=== PATIENT | male | born 1970 | race African-American/Black ===

== ENCOUNTER 2022-03-07 08:38 | Observation (INO) ==
[2022-03-07] MEDS ORDERED: MoRPHine SULFATE 2 MG/ML CARP IV STA (08:43)
[2022-03-07] MEDS ORDERED: ONDANSETRON INJ 2 MG/ML 2 ML VIAL IV STA (08:43)
[2022-03-07] MEDS ORDERED: SODIUM CHLORIDE 0.9% 1000ML 1,000 ML IV STA (08:43)
[2022-03-07] MEDS ORDERED: NITROGLYCERIN 2% OINTMENT 30GM TUBE EXT STA (08:43)
[2022-03-07] MEDS ORDERED: TICAGRELOR 90 MG TAB PO ONE (08:56)
[2022-03-07] MEDS ORDERED: Heparin IV Adult Wt-Based Low-Dose WITH Bolus Protocol STA (08:56)
--- NOTE | 2022-03-07 08:59 | XRay Report ---
XR chest 1V portable HISTORY: 51 years-old Male Chest Pain . Acute chest pain COMPARISON: None TECHNIQUE: AP view of the chest FINDINGS: Cardiomediastinal and hilar silhouettes are within normal limits. No pneumothorax, pleural effusion, airspace consolidation or overt pulmonary edema. Bones appear grossly intact. IMPRESSION: No acute process. ACT 112: Negative or not required by law. The above report was generated using voice recognition software. It may contain grammatical, syntax o r spelling errors. Electronically signed by: Catalino Watkins M.D. 03/07/2022 8:58 AM
[2022-03-07 09:01] LABS: Basophils % (auto) 0.7 %; Eosinophils # (auto) 0.15 K/uL (0-0.50); Eosinophils % (auto) 1.1 %; Hematocrit (blood only) 44.6 % (40.1-51.0); Hemoglobin 15.1 g/dl (14.0-18.0); Immature Granulocytes # (auto) 0.05 K/uL (0.00-0.02); Immature Granulocytes % (auto) 0.4 %; Lymphocytes # (auto) 4.68 K/uL (1.2-3.4); Lymphocytes % (auto) 34.1 %; Mean Corpuscular Hemoglobin 29.6 pg (25.0-34.0); Mean Corpuscular Hgb Conc 33.9 g/dL (32.0-36.0); Mean Corpuscular Volume 87.5 fL (80.0-100.0); Mean Platelet Volume 10.3 fL (9.4-12.4); Monocytes % (auto) 5.1 %; Neutrophils # (auto) 8.06 K/uL (1.4-6.5); Neutrophils % (auto) 58.6 %; Platelet Count 309 K/uL (130-400); RDW Coefficient of Variation 12.7 % (11.5-14.5); RDW Standard Deviation 40.3 fL (36.4-46.3); White Blood Count 13.74 K/ul (4.8-10.8)
[2022-03-07] MEDS ORDERED: HEPARIN SOD (PORCINE) 1000 UNIT/ML ONE (09:05)
--- NOTE | 2022-03-07 09:14 | Emergency Department Note ---
History of Present Illness General Chief Complaint: Cardiac Assessment Stated Complaint: CARDIAC ASSESSMENT Time Seen by Provider: 03/07/22 08:43 Source: patient and EMS History of Present Illness Provider Complaint: chest pain Onset (ago): hour(s) 1 Duration: constant Onset: during exertion (Pain occurred after getting off of his [employer] bike) Pain Location: substernal Pain Radiation: none Severity: severe Maximum Pain Intensity: 10 Current Pain Intensity: 5 Quality: + heaviness Relieved By: + nothing Exacerbated By: + nothing Context: no recent illness, no recent surgery, no trauma/injury or no new medications Associated symptoms: no nausea, no vomiting, no dyspnea, no palpitations or no fever Treatments prior to arrival: aspirin and nitroglycerin Home Medications Medication Instructions Recorded Confirmed Type aspirin 81 mg tablet,delayed 324 mg PO DAILY Chest Pain 03/07/22 03/07/22 History release Allergies Allergy/AdvReac Type Severity Reaction Status Date / Time No Known Allergies Allergy Unverified 03/07/22 09:22 Past Med/Surg History Medical History (Updated 03/07/22 @ 09:26 by Sammy Short) No pertinent family history No pertinent past medical history Surgical History (Updated 03/07/22 @ 09:09 by Sammy Short) No pertinent past surgical history Social History Smoking Status: Never smoker Feels Safe at Home: Yes Review of Systems A total of 10 systems reviewed and were otherwise negative Physical Exam Vital Signs Vital Signs - 24 hr 03/07/22 08:44 03/07/22 08:43 03/07/22 08:56 Temperature 36.6 C Temperature Source Oral Pulse Rate 74 73 71 Pulse Rhythm Regular Respiratory Rate 16 20 Respiratory Effort / Characteristics Non-Labored Respiratory Depth Normal Respiratory Pattern Regular Blood Pressure 126/82 Blood Pressure Mean 96 Blood Pressure Position Sitting Pulse Oximetry 100 95 95 Oxygen Delivery Method Room Air Room Air Room Air Sepsis Recent Fever Within 48 Hours No Sepsis New/Unexplained Change in Mental Status No Sepsis Action Taken by Nursing No Action Required 03/07/22 09:16 Temperature Temperature Source Pulse Rate Pulse Rhythm Respiratory Rate Respiratory Effort / Characteristics Respiratory Depth Respiratory Pattern Blood Pressure Blood Pressure Mean Blood Pressure Position Pulse Oximetry 100 Oxygen Delivery Method Room Air Sepsis Recent Fever Within 48 Hours Sepsis New/Unexplained Change in Mental Status Sepsis Action Taken by Nursing Physical Exam HENT: Exam performed. - Head: Normocephalic and atraumatic. - Right Ear: External ear normal. No mastoid tenderness. - Left Ear: External ear normal. No mastoid tenderness. - Mouth/Throat: The oropharynx is clear and moist. No trismus in the jaw. No dental abscesses or uvula swelling. No oropharyngeal exudate or tonsillar a bscesses. EYES: Conjunctivae and EOM are normal. Pupils are equal, round, and reactive to light. Right eye exhibits no discharge. Left eye exhibits no discharge. No scleral icterus. NECK: Normal range of motion. Neck supple. No JVD present. No spinous process tenderness present. No carotid bruit present. No rigidity. No tracheal deviation and normal range of motion present. No Brudzinski's sign and no Kernig's sign noted. CV: Normal rate, regular rhythm, normal heart sounds and intact distal pulses. There is no peripheral edema. Palpable radial pulses bue. PULM/CHEST: Effort normal and breath sounds normal. No respiratory distress. No stridor. He has no wheezes. He has no rales. - Chest Wall: He exhibits no tenderness. ABD: The abdomen is soft. Bowel sounds are normal. He has no distension. No mass is present. There is no tenderness. There is no rebound, no guarding, no Lucas's sign and no tenderness at McBurney's point. Rovsig negative. MUSC/SKEL: Normal range of motion. There is no peripheral edema, tenderness or deformity. LYMPH: No cervical adenopathy. NEURO: He is alert and oriented to person, place, and time. He has normal strength. No cranial nerve deficit or sensory deficit. Coordination and gait normal. GCS eye subscore is 4. GCS verbal subscore is 5. GCS motor subscore is 6. Cerebellar tests wnl. SKIN: Skin is warm and dry. He is not diaphoretic. Course Course 0843: The patient was evaluated in room B5. A complete history and physical exam was performed Cardiac monitoring: An order was placed for continuous cardiac monitoring. The monitor shows a rate of 80 with sinus rhythm 0847: EMS stated that on arrival to the patient's home the patient had a normal twelve-lead. EMS states that when they pulled into the hospital the patient started reporting increased chest pain and a twelve-lead was conducted which was not able to be transmitted since they were just pulling into the parking lot. This EKG done at 0826 showed sinus rhythm with a rate of 100. PVCs were present and there is ST elevation in leads V1, V2, V3. I discussed the case with Dr. Harper interventional cardiology and EKG images were sent to him. 0851: Dr. Harper responded back and stated to activate a heart alert. He asked for Brilinta 180 mg and heparin bolus also be given. 09: Dr. Harper at bedside and states he will take the patient to [facility]. Administered Medications Sodium Chloride (Nss 1000ml) 1,000 mls @ 999 mls/hr IV .Q1H1M STA Stop: 03/07/22 09:43 Last Admin: 03/07/22 08:57 Dose: 999 mls/hr Documented By: CAROLINE Discontinued Medications Heparin Sodium (Porcine) (Heparin Sod (Porcine) 1000 Unit/Ml) Confirm Administered Dose 1,000 units .ROUTE .STK-MED ONE Stop: 03/07/22 09:06 Last Admin: 03/07/22 09:08 Dose: 5,000 units Documented By: CAROLINE Co-signed By: IZZY Morphine Sulfate (Morphine Sulfate 2 Mg/Ml Carp) 2 mg IV NOW STA Stop: 03/07/22 08:44 Last Admin: 03/07/22 08:56 Dose: 2 mg Documented By: CAROLINE Nitroglycerin (Nitroglycerin 2% Ointment 30gm Tube) 0.5 inch EXT NOW STA Stop: 03/07/22 08:44 Last Admin: 03/07/22 08:57 Dose: 0.5 inch Documented By: CAROLINE Ondansetron HCl (Ondansetron Inj 2 Mg/Ml 2 Ml Vial) 4 mg IV NOW STA Stop: 03/07/22 08:44 Last Admin: 03/07/22 08:57 Dose: 4 mg Documented By: CAROLINE Ticagrelor (Ticagrelor 90 Mg Tab) 180 mg PO ONE ONE Stop: 03/07/22 08:57 Last Admin: 03/07/22 09:02 Dose: 180 mg Documented By: CAROLINE Medical Decision Making Laboratory Data Result diagrams: 03/07/22 08:40 03/07/22 08:40 Labs: Lab Results 03/07/22 Range/Units 08:40 WBC 13.74 H (4.8-10.8) K/ul RBC 5.10 (4.63-6.08) M/uL Hgb 15.1 (14.0-18.0) g/dl Hct 44.6 (40.1-51.0) % MCV 87.5 (80.0-100.0) fL MCH 29.6 (25.0-34.0) pg MCHC 33.9 (32.0-36.0) g/dL RDW Std Deviation 40.3 (36.4-46.3) fL RDW Coeff of Germaine 12.7 (11.5-14.5) % Plt Count 309 (130-400) K/uL MPV 10.3 (9.4-12.4) fL Immature Gran % (Auto) 0.4 % Neut % (Auto) 58.6 % Lymph % (Auto) 34.1 % [place] % (Auto) 5.1 % Eos % (Auto) 1.1 % Baso % (Auto) 0.7 % Neut # (Auto) 8.06 H (1.4-6.5) K/uL Lymph # (Auto) 4.68 H (1.2-3.4) K/uL [place] # (Auto) 0.70 (0.24-0.82) K/uL Eos # (Auto) 0.15 (0-0.50) K/uL Baso # (Auto) 0.10 (0-0.2) K/uL Immature Gran # (Auto) 0.05 H (0.00-0.02) K/uL MDM Narrative 0843: The patient was evaluated in room B5. A complete history and physical exam was performed Cardiac monitoring: An order was placed for continuous cardiac monitoring. The monitor shows a rate of 80 with sinus rhythm 0847: EMS stated that on arrival to the patient's home the patient had a normal twelve-lead. EMS states that when they pulled into the hospital the patient started reporting increased chest pain and a twelve-lead was conducted which was not able to be transmitted since they were just pulling into the parking lot. This EKG done at 0826 showed sinus rhythm with a rate of 100. PVCs were present and there is ST elevation in leads V1, V2, V3. I discussed the case with Dr. Harper interventional cardiology and EKG images were sent to him. 0851: Dr. Harper responded back and stated to activate a heart alert. He asked for Brilinta 180 mg and heparin bolus also be given. 0922: Dr. Harper at bedside and states he will take the patient to [facility]. Impression & Plan ST elevation myocardial infarction (STEMI) Critical Care Time Critical Care Time: Yes Total Critical Care Time: 39 I have personally spent greater than 39 minutes of critical care time in the direct management of this patient. This includes bedside care, interpretation of diagnostic studies, and testing, discussion with consultants, patient, and family members, and other required patient management activities. This 39 minutes is in excess of all separately billable procedures. Discharge Plan Visit Data Chief Complaint: Cardiac Assessment Stated Complaint: CARDIAC ASSESSMENT ED Provider: Sammy Short Discharge Problem: ST elevation myocardial infarction (STEMI) Patient Disposition: Admitted As Inpatient Forms Stand Alone Forms: My [facility] Prescriptions Prescriptions: No Action aspirin 81 mg Tablet,Delayed Release (Dr/Ec) 324 mg PO DAILY Referrals Referrals: PCP,NO [Primary Care Provider] - : ST elevation myocardial infarction (STEMI) Qualifiers: Involved coronary artery: unspecified coronary artery Qualified Code(s): I21.3 - ST elevation (STEMI) myocardial infarction of unspecified site
--- NOTE | 2022-03-07 09:28 | Pre Anesthesia Assessment ---
Date of Service March 07, 2022 Pre Sedation Assessment Vital Signs Temp Pulse Pulse Resp BP BP Pulse Ox 03/07/22 09:14 71 116/66 95 03/07/22 09:10 61 127/70 94 03/07/22 09:08 69 120/75 92 03/07/22 09:07 67 130/78 96 03/07/22 08:38 78 16 126/82 99 03/07/22 09:16 100 03/07/22 08:56 71 95 03/07/22 08:43 73 20 95 03/07/22 08:44 36.6 C 74 16 126/82 100 O2 Del Method 03/07/22 09:14 Room Air 03/07/22 09:10 Room Air 03/07/22 09:08 03/07/22 09:07 Room Air 03/07/22 08:38 Room Air 03/07/22 09:16 Room Air 03/07/22 08:56 Room Air 03/07/22 08:43 Room Air 03/07/22 08:44 Room Air Cardiovascular RRR, no murmur, no edema Respiratory normal respiratory effort, lungs clear to auscultation Pre-Sedation Airway Assessment Smoking Status: Never smoker I 4 Notes The planned sedation has been discussed with the patient. Informed Consent was obtained. I have identified the patient, determined the appropriateness of sedation and have assessed the patient immediately prior to the procedure. All medicine(s) and interventions are by my order.
[2022-03-07 09:34] LABS: BUN Creatinine Ratio 17.1 (10-20); Calcium 9.9 mg/dl (8.5-10.1); Creatinine Clr Calc Pharmacy 69.7 ml/min; Est GFR (African American) 66.5 ml/min; Est GFR (Non-African American) 57.4 ml/min; Potassium 4.2 mmol/L (3.5-5.1)
[2022-03-07 09:35] LABS: iSTAT Creatinine 1.5 mg/dl (0.6-1.3); iSTAT Hemoglobin 15.3 g/dl (14.0-18.0); iSTAT Ionized Calcium 1.11 mmol/l (1.12-1.32)
[2022-03-07 09:37] LABS: Troponin I High Sensitivity 12.2 pg/ml (0-20)
[2022-03-07] MEDS ORDERED: TICAGRELOR 90 MG HOME PACK PO STA (11:04)
[2022-03-07] MEDS ORDERED: ICU PROTOCOL FOR HYPERGLYCEMIA PRN (11:10)
--- NOTE | 2022-03-07 11:17 | Post Anesthesia Assessment ---
Date of Service March 07, 2022 Post Sedation Assessment Vital Signs Temp Pulse Pulse Resp BP BP Pulse Ox 03/07/22 09:25 73 126/68 97 03/07/22 09:20 70 116/69 97 03/07/22 09:15 73 108/67 95 03/07/22 09:14 71 116/66 95 03/07/22 09:10 61 127/70 94 03/07/22 09:08 69 120/75 92 03/07/22 09:07 67 130/78 96 03/07/22 08:38 78 16 126/82 99 03/07/22 09:16 100 03/07/22 08:56 71 95 03/07/22 08:43 73 20 95 03/07/22 08:44 36.6 C 74 16 126/82 100 O2 Del Method 03/07/22 09:25 Room Air 03/07/22 09:20 Room Air 03/07/22 09:15 Room Air 03/07/22 09:14 Room Air 03/07/22 09:10 Room Air 03/07/22 09:08 03/07/22 09:07 Room Air 03/07/22 08:38 Room Air 03/07/22 09:16 Room Air 03/07/22 08:56 Room Air 03/07/22 08:43 Room Air 03/07/22 08:44 Room Air Discharge Sedation Level of Care: Phase I Post Sedation Plan On clinical assessment, the patient appears to have tolerated the sedation without complications. Patient is recovering as anticipated. Patient will continue to be monitored by nursing and may be discharged when sedation discharge criteria are met per below protocol. Upon Completions of procedure up to 15 minutes continue every 5 minute vital signs and the P.A.R. score; then discharge to a Phase I or Fast Track to Phase II per the following guidelines: * Discharge Patient to appropriate Phase II area if PAR is 8 or greater or return to pre- procedure baseline. The post - procedure orders will be as directed. * If PAR score is less than 8 or not return to pre-procedure baseline then patient will follow Phase I monitoring till PAR is reached for Phase II. The Phase I may be done in procedure room or may call to secure a Phase I area. * If naloxone or flumazenil are used for reversal, hold in Phase I for continued monitoring from when last reversal dose was given for a minimum of 60 minutes or longer pending the nurse and/or physician discretion of patient condition before discharge to Phase II. Please call the Sedation Physician to re-evaluate and complete post-note for discharge to Phase II area. Do NOT discharge from procedure sedation or Phase 1 until post- sedation evaluation note is complete by procedure /sedation MD Sedation Discharge Instructions to be given to the patient at discharge to home. [facility] [place] Procedure Codes (Charges) Indication for Procedure Indication for procedure: AMI Sedation/Anesthesia Procedure 1: Sedation/Anesthesia: 47676 Mod Sedation by the same physician;Init15 Min Child Age 5 & Up Total Sedation Time (minutes): 48 Procedure 2: Sedation/Anesthesia: 69101 Mod Sedation by the same physician; Ea [id number] Minutes
--- NOTE | 2022-03-07 11:31 | Cardiac Catheterization ---
ACC Data: Acupressurist Cardiac Status Clinical evaluation leading to the procedure CAD Presenation: Unstable angina Anginal Classification: CCS IV Heart Failure: No Cardiogenic Shock within 24 Hours: No Cardiac Arrest within 24 Hours: No Imaging Studies Past 6 Months: No Stress Studies Past 6 Months: No Coronary Anatomy Left Main (% Stenosis): Normal LAD (% Stenosis): Ostial (Thrombotic,), Proximal (Long combined thrombosis and atherosclerosis (ruptured) 70% stenosis), Mid (Long eccentric 80% stenosis) and Distal (Mild diffuse) D1 (% Stenosis): Normal D2 (% Stenosis): Distal (100% thrombotic) Circumflex (% Stenosis): Normal L PL1 (% Stenosis): Proximal (95 to 99%) RCA (% Stenosis): Proximal (Mild) and Mid (Mild) R PDA (% Stenosis): Normal R PL1 (% Stenosis): Normal Ramus (% Stenosis): Normal (Diffuse mild) Diagnostic Physicians Name: Flaco Harper MD, PhD Closure Device Percutaneous Entry Location: Radial Recommendations: PCI without planned CABG PCI Indication: PCI for high risk Non-MELITON Lesion Segment Name: Proximal LAD through mid LAD Culprit Artery: Yes Stenosis Prior to Rx (%): Approximately up to 70% with thrombotic burden proximally, 80% diffuse mid Chronic Total Occlusion: No Pre-Procedure FERMIN Flow: 2 Previously Treated Lesion: No Lesion Complexity: Non-High/Non-C Lesion Length (mm): 23 Thrombus Present: Yes Bifurcation Lesion: Yes Guidewire Across Lesion: Yes Intraprocedure Events Significant Disection: No Perforation: No Cardiac Cath Procedure Full Procedure Date March 07, 2022 Pre-Procedure Diagnosis Pre-Procedure Diagnosis: Acute Coronary Syndrome AUC Score AUC Score: 07 Post-Procedure Diagnosis Post-Procedure Diagnosis: Severe CAD Procedure(s) Performed Procedure(s) Performed: Coronary Angiography, Left Heart Cath and Drug Eluting Stent (LAD) Manager Access Flaco Harper MD, PhD Estimated Blood Loss Estimated Blood Loss: 15 ml Summary of Findings Brief description: Patient was brought to the cardiac catheterization suite where he was shaved and prepped in a sterile fashion. Sedated using IV Versed and fentanyl. Soft tissues of the right wrist were anesthetized using 2 mL of 1% Xylocaine. The r ight radial artery was accessed with a modified Seldinger technique and a 6 [place] radial artery glide sheath was placed. All catheters were advanced and exchanged over a 0.035 J-tip wire. Patient was provided anticoagulation with IV heparin and antispasmodics including nicardipine and nitroglycerin. Right coronary angiography in orthogonal views with a 5 [place] JR4 diagnostic catheter. Left coronary angiography in orthogonal views with a 6 [place] EBU 3.5 guide catheter. We then proceeded with PCI as below. Left heart cath was performed post PCI using a 5 [place] angled pigtail catheter. Patient arrived with heparin on board. ACT was checked intermittently. Additional heparin was provided as needed to maintain therapeutic ACT. Through the EBU 3.5 guide catheter a BMW reversal guidewire was advanced through the LAD and into the diagonal branch. The thrombotic lesion was "Dottered" with a 1.5 x 8 mm balloon which was not inflated. This balloon was then removed and the BMW guidewire was redirected down the main LAD. The mid LAD lesion was predilated several times with a 2.5 x 12 mm PTCA balloon. Maximum atmospheres 14. The proximal thrombotic lesion was predilated with the same balloon up to 14 kim. The balloon was then removed. A 2.75 x 18 mm Lavell drug-eluting stent was then deployed across the mid LAD stenosis with the proximal edge in the late proximal LAD at nominal pressure with a second inflation up to 13 kim. This stent balloon was then used to dilate the proximal edge and into the proximal unstented LAD segment. The balloon was removed and a 3.0x 12 mm drug-eluting stent was then advanced and positioned with its proximal edge at the ostium of the LAD and its distal edge overlapped within the initial stent. This was then deployed at nominal pressure. Stent balloon was removed and postdilatation was performed using a 3.25 x 9 mm noncompliant balloon. Approximate final proximal stent diameter was 3.5 millimeters and the distal stent edge was 2.75 mm with the intervening stented segment being tapered from proximal to distal with various balloon inflations. Balloon was removed. Angiography was performed. The guidewire and then the guide catheter were removed. Left heart cath was performed with the pigtail catheter as above. The radial artery sheath was removed and hemostasis was obtained using a TR band. Patient was hemodynamically stable and asymptomatic. He was returned to the recovery area. This ended the case. Coronary Angiography Summary: LMT: Large caliber trifurcating into LAD, ramus, and circumflex. Diffuse mild irregularities. LAD: Large caliber vessel which is transapical. There is a lesion beginning at the ostium and extending through the proximal segment which he appears to be thrombotic and underlying ruptured atherosclerotic plaque. Somewhat hazy and 70+ percent stenosis. First diagonal is relatively small. The mid LAD then has long eccentric and calcified stenosis of 80+ percent. There is a large septal branch arising from the segment. The second diagonal is medium in caliber, long, and branches. The superior branch is occluded with FERMIN 0 flow. The distal LAD beyond the second diagonal has diffuse mild plaque. There is FERMIN II-III flow in the LAD proper. Ramus: Large caliber and branching vessel. Diffuse mild disease. Appears to perfuse the lateral myocardium out towards the apex. LCx: Medium to large in caliber. Travels in the AV groove giving several twig- like obtuse marginal branches and an atrial branch. Then, its first substantial branch has an ostial to proximal 99% stenosis. Appears to be a branching posterolateral with the remainder of that vessel having mild luminal irregularities. The most distal AV groove circumflex becomes small and terminates. RCA: Large caliber and dominant. Bifurcates distally into a large PDA and a medium to large caliber branching posterolateral. Proximal to mid segment has diffuse mild disease less than 30% stenosis. The remainder of the vessel has mild luminal irregularities. PCI of LAD: Proximal and mid severe lesion reduced to 0% residual stenosis post PCI FERMIN-3 flow post PCI No evidence of dissection or perforation post PCI Hemodynamics Rest Ao:: 100/66 mmHg, mean 72 mmHg Final Ao: 124/70 mmHg, mean 95 mmHg LV: 110/4 mmHg, LVEDP 9 mmHg Recommendations Recommendations: PCI without planned CABG Radiation Exposure (mGy) 2887 mGy, fluoroscopy time 16.7 minutes Contrast (mls) 175 mL Anesthesia 1 mg IV Versed, 25 mcg IV fentanyl Procedural Complication(s) None Disposition ICU I attest to the content of the Intraoperative Record and any orders documented therein. Any exceptions are noted below. [facility] Card Cath Procedure Codes Cardiac Catheterization Procedure 1: Cardiovascular Cath Procedures: 85455 Coronaries and LHC (+/-LV) Moderate Sedation Procedure 1: Sedation/Anesthesia: 96083 Mod Sedation by the same physician;Init15 Min Child Age 5 & Up Procedure 2: Sedation/Anesthesia: 77143 Mod Sedation by the same physician; Ea [id number] Minutes (Total sedation time 48 minutes) Stenting Procedure 1: Cardiovascular Stent Procedures: 82341 Perc transluminal revascularization of acute sub/total occl, aMI (LAD, diagonal) PG Care Time/CCT Total # of Minutes Spent Total Time Spent with Patient: Total time spent is greater than 50% in coordination of care (as documented) at patient's floor/unit and/or counseling patient:
--- NOTE | 2022-03-07 12:17 | Cardiology Consultation ---
Date of Consultation March 07, 2022 Assessment & Plan (1) ST elevation myocardial infarction (STEMI): Culprit lesion is the proximal LAD which appeared to be extensive thrombotic material as well as probable moderate underlying atherosclerosis with rupture. The mid LAD lesion was more chronic in appearance and there appeared to be embolization of clot into the diagonal 2 branch. Suspect nonsustained ventricular tachycardia secondary to this lesion and then recanalization with aspirin, etc. Patient underwent successful PCI with implantation of 2 overlapping drug-eluting stents spanning the ostium of the LAD through the mid LAD. FERMIN-3 flow was reestablished except for the distal D2 branch. Patient has residual significant occlusive coronary disease in the posterolateral branch of the circumflex which is of a lesser concern. Patient will remain in the ICU for 24 hours per standard of care. Dual antiplatelet therapy with aspirin 81 mg daily and Brilinta 90 mg p.o. twice daily should continue for at least 1 year. After that, dual antiplatelet therapy with aspirin 81 mg daily and Brilinta 60 mg twice daily or changed to Plavix 75 mg daily. Guideline directed medical therapy with secondary prevention of CAD to include; high intensity statin therapy, beta-nathalie, plus or minus REANNA inhibitor/ARB as indicated. Echocardiogram to evaluate EF, wall motion, etc. this may have significant impact on the agents chosen for his therapy. Strongly encourage cardiac rehab after discharge. Decision regarding the treatment of residual circumflex lesion will be left to his primary workers compensation adjuster. Present on Admission?: Yes (2) Coronary artery disease: Severe coronary disease with the exception of the posterolateral branch lesion has been treated. Guideline directed medical therapy with agents and doses to be determined by his primary workers compensation adjuster. Complete work-up for occult risk factors including diabetes, dyslipidemia, etc. Present on Admission?: Yes (3) Atherogenic dyslipidemia: Fasting lipid panel is pending. Under current guidelines patient is considered high risk and therefore high intensity statin therapy with aggressive LDL reduction target is recommended. Target LDL reduction greater than or equal to 50% of untreated LDL. I initiated a atorvastatin 40 mg daily but this will be titrated as determined by the primary workers compensation adjuster. Plan Anticipate at least 48 hours of hospitalization given acute OR. Patient will be provided with discharge instructions regarding radial access care, follow-up appointments, etc. History of Present Illness Reason for Consultation: Chest pain Attending Physician: Flaco Harper MD, PhD History of Present Illness Pleasant 51-year-old male without prior cardiac history was exercising on his [employer] and developed substernal chest discomfort. Described as sharp and pressure-like chest discomfort radiating to his back with shortness of breath. When the pain did not dissipate significantly he called EMS and took aspirin. EMS performed EKG which was initially normal. In transit he developed worsening chest pain and monitor obtained EKG was transmitted to the emergency department and demonstrated nonsustained ventricular tachycardia and ST elevations. On arrival to the emergency department EKG demonstrated no ST elevations and resolution of the ventricular ectopy. I was contacted via the emergency medicine physician regarding the patient's condition. I asked them to provide the patient aspirin, Brilinta 180 mg, and an IV bolus of heparin after I reviewed the electrocardiographic data. On my arrival the patient's chest discomfort has significantly dissipated and he was in sinus rhythm on the monitor. Blood pressure was stable. He still had some mild pressure and appeared anxious. After discussion with the patient, we decided to proceed emergently for cardiac catheterization plus or minus PCI as indicated. Laboratory data was still pending at that time. Patient underwent cardiac catheterization which revealed a high risk thrombotic lesion in the ostial to proximal LAD with a more chronic appearing lesion in the mid segment and evidence of embolization to a branch of the second diagonal. Patient then underwent PCI of the LAD and diagonal. Stents placed in the LAD proper, only mechanical disruption of clot in the diagonal branch given its small size was attempted. Patient had complete resolution of his chest discomfort. He will now be admitted to the intensive care unit. Patient reports no prior episodes of chest discomfort. 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 He would like to follow with [employer] cardiology since they are in his office building and that would be most convenient. Dr. Evans Oconnor was notified. Patient denies any preceding exertional dyspnea, syncope, near syncope, orthopnea, PND, racing heartbeat, palpitations, or edema. He does not have a family history of premature coronary disease. At present, he is feeling much better. Findings were discussed with his as well. A stat echocardiogram was ordered and will be interpreted by Dr. Oconnor. Allergies Allergy/AdvReac Type Severity Reaction Status Date / Time No Known Allergies Allergy Unverified 03/07/22 09:22 Home Medications Medication Instructions Recorded Confirmed Type aspirin 81 mg tablet,delayed 324 mg PO DAILY Chest Pain 03/07/22 03/07/22 History release Patient History Medical History No pertinent family history No pertinent past medical history Surgical History No pertinent past surgical history Social History Smoking Status: Never smoker Feels Safe at Home: Yes Review of Systems Review of Systems: Negative x12 point review except as per HPI Physical Exam Constitutional: WD/WN, vitals as above Eyes: PERRL, conjunctivae normal, anicteric sclerae ENMT: external ear and nose normal, oropharynx normal Neck: No JVD. Respiratory: Clear to auscultation bilaterally. No wheezing, rhonchi, or rales. Cardiovascular: Regular rate and rhythm. S4 gallop. I do not appreciate any rubs or murmurs. No lower extremity edema. 2+ distal pulses. Gastrointestinal (Abdomen): Normal active bowel sounds. Musculoskeletal: No edema. Neurologic: Cognition is intact. Speech is fluent. There is no focal motor deficits. No tremor. Psychiatric: A+Ox3, euthymic affect Results & [facility] ([facility]) Vital Signs (Past 12 Hours) Vital Signs Temp Pulse Pulse Resp BP BP Pulse Ox 03/07/22 09:25 73 126/68 97 03/07/22 09:20 70 116/69 97 03/07/22 09:15 73 108/67 95 03/07/22 09:14 71 116/66 95 03/07/22 09:10 61 127/70 94 03/07/22 09:08 69 120/75 92 03/07/22 09:07 67 130/78 96 03/07/22 08:38 78 16 126/82 99 03/07/22 09:16 100 03/07/22 08:56 71 95 03/07/22 08:43 73 20 95 03/07/22 08:44 36.6 C 74 16 126/82 100 O2 Del Method 03/07/22 09:25 Room Air 03/07/22 09:20 Room Air 03/07/22 09:15 Room Air 03/07/22 09:14 Room Air 03/07/22 09:10 Room Air 03/07/22 09:08 03/07/22 09:07 Room Air 03/07/22 08:38 Room Air 03/07/22 09:16 Room Air 03/07/22 08:56 Room Air 03/07/22 08:43 Room Air 03/07/22 08:44 Room Air PG Care Time/CCT Total # of Minutes Spent Total Time Spent with Patient: Total time spent is greater than 50% in coordination of care (as documented) at patient's floor/unit and/or counseling patient: Critical Care Time: Yes A total of 45 minutes was spent in the evaluation, examination, review of electronic health record, formulation and implementation of a plan of care, disc ussion with family and other providers, and documentation of all of the above. This is exclusive of the time spent in his procedure[place] [address] Inpt Consult Level 5 Patient Type New History Comprehensive Exam Comprehensive Medical Decision Making High Complexity Diagnoses ST elevation myocardial infarction (STEMI) I21.3 Involved coronary artery: unspecified coronary artery Coronary artery disease I25.10 Atherogenic dyslipidemia E78.5 Additional Codes Critical Care Time - Critical Care Time: Yes ([id number]) (1) ST elevation myocardial infarction (STEMI) Involved coronary artery: unspecified coronary artery Qualified Code(s): I21.3 - ST elevation (STEMI) myocardial infarction of unspecified site
--- NOTE | 2022-03-07 12:39 | History & Physical Report ---
Date of Service March 07, 2022 Assessment & Plan (1) ST elevation myocardial infarction (STEMI): Plan: 51-year-old male with no significant past medical history presented to the hospital for chest pain. Initial EKG done by EMS demonstrated nonsustained ventricular tachycardia and ST elevations. Heart alert called and pt had emergent cardiac cath with successful PCI 2 drug-eluting stents were placed in overlapping the LAD and mid LAD. Case discussed with cardiology that recommended to give next dose Brillinta tonight Starting on on aspirin 81mg, metoprolol and Atorvastatin 40mg ECHO showed Normal LV wall motion abnormality with EF 60-65 % Total cholesterol 225, LDL 177, HDL 47 Will monitor in the ICU for post PCI Dyslipidemia Continue atorvastatin 40mg daily DVT px SCD for now (Consider to start on subq heparin if hospital course prolong more than 24hrs) Code status Full code Admission and Anticipated Discharge Date Admission Date: March 07, 2022 History of Present Illness Chief Complaint: Chest pain Primary Care Provider: NO PCP 51-year-old male with no significant past medical history presented to the hospital for chest pain. Pt said that this morning after finishing exercise on his [employer] bike and developed substernal chest discomfort. Described as sharp and pressure-like chest discomfort radiating to his back with shortness of breath.He said that the pain increased in intensity and he took aspirin. He said his called EMS. He said that while en route to the ER chest pain worsening. Initial EKG done by EMS demonstrated nonsustained ventricular tachycardia and ST elevations.He was given aspirin and Brillinta 180mg upon arriving in the ER. Heart alert was called and pt was taken to the ER for emergent cardiac cath where 2 drug-eluting stents were placed in overlapping the LAD and mid LAD. 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 Currently pt said that chest pain improves, but he said that he had a mild intermittent achy chest discomfort. Denies any chest pain, palpitation, dizziness and SOB. Allergies Allergy/AdvReac Type Severity Reaction Status Date / Time No Known Allergies Allergy Unverified 03/07/22 09:22 Home Medications Medication Instructions Recorded Confirmed Type aspirin 81 mg tablet,delayed 324 mg PO DAILY Chest Pain 03/07/22 03/07/22 History release Past Med/Surg History Medical History No pertinent family history No pertinent past medical history Surgical History No pertinent past surgical history Social History Smoking Status: Never smoker Hx Alcohol Use: No Preferred Language: Micronesian Communication Ability: Effective Drilling Manager Required: No Beliefs That Will Affect Care: None Current Living Situation: Spouse Feels Safe at Home: Yes Safety Concerns: Feels Safe At This Time Assistive Devices: Glasses Review of Systems Review of Systems: All systems reviewed & are unremarkable except as noted in HPI & below Physical Exam Physical Exam: General- No acute distress Head- atraumatic Eyes- PERRL, EOMI, ENT- oropharynx clear Neck- supple, no JVD Lungs- clear to auscultation Heart- regular rhythm; no murmur Abdomen- normal bowel sounds, soft, nontender Extremities- no calf tenderness, no hematoma noted in right wrist area Neuro- alert, oriented x 3; PERRL, EOMI; no facial palsy; no dysarthria Skin- warm & dry Results & Data Results & Data ([facility]) Vital Signs (Past 12 Hours) Vital Signs Temp Pulse Pulse Resp BP BP Pulse Ox 03/07/22 12:13 03/07/22 11:45 52 L 14 95 03/07/22 11:30 68 12 96 03/07/22 11:30 36.4 C L 72 16 138/79 94 03/07/22 11:15 73 14 95 03/07/22 11:10 69 18 90 03/07/22 11:47 36.4 C L 59 L 16 157/75 H 94 03/07/22 09:25 73 126/68 97 03/07/22 09:20 70 116/69 97 03/07/22 09:15 73 108/67 95 03/07/22 09:14 71 116/66 95 03/07/22 09:10 61 127/70 94 03/07/22 09:08 69 120/75 92 03/07/22 09:07 67 130/78 96 03/07/22 08:38 78 16 126/82 99 03/07/22 09:16 100 03/07/22 08:56 71 95 03/07/22 08:43 73 20 95 03/07/22 08:44 36.6 C 74 16 126/82 100 O2 Del Method 03/07/22 12:13 Room Air 03/07/22 11:45 03/07/22 11:30 03/07/22 11:30 Room Air 03/07/22 11:15 03/07/22 11:10 03/07/22 11:47 Room Air 03/07/22 09:25 Room Air 03/07/22 09:20 Room Air 03/07/22 09:15 Room Air 03/07/22 09:14 Room Air 03/07/22 09:10 Room Air 03/07/22 09:08 03/07/22 09:07 Room Air 03/07/22 08:38 Room Air 03/07/22 09:16 Room Air 03/07/22 08:56 Room Air 03/07/22 08:43 Room Air 03/07/22 08:44 Room Air (1) ST elevation myocardial infarction (STEMI) Involved coronary artery: unspecified coronary artery Qualified Code(s): I21.3 - ST elevation (STEMI) myocardial infarction of unspecified site
--- NOTE | 2022-03-07 13:04 | Critical Care Consultation ---
Date of Consultation March 07, 2022 Assessment & Plan (1) ST elevation myocardial infarction (STEMI): (2) Coronary artery disease: (3) Hypertension: Plan -- STEMI S/p cardiac cath --> 2 JONATAN placed in the proximal and mid LAD Patient did have nonsustained V. tach on the way to the hospital. 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 If it stays on the higher side then we will add lisinopril to be given today Patient's heart rate is on the lower side we will try to avoid beta-blockers for the time being Please note the above document was generated using voice recognition software. It may contain grammatical, syntax or spelling errors.Any formal questions or concerns about the content, text or information contained within the body of this dictation should be directly addressed to the provider for clarification. History of Present Illness Attending Physician: Oli Womack MD History of Present Illness 51-year-old male with no significant past medical history presented to the hospital with complaints of chest pain He was found to have STEMI. Patient also had nonsustained V. tach on the way to the hospital. He was taken to cardiac Revenue Research Analyst and 2 drug-eluting stents were placed in overlapping the LAD and mid LAD. 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 He woke up today to do his palatine bike and that is when he got his chest pain. At the time of examination in the room patient said that his chest pain is significantly improved He had some aching around the chest but nothing compared to how he presented to the hospital He denies any shortness of breath, no headache, no nausea, no vomiting. No headache or blurry vision. No fever or chills. Social history: Lifetime non-smoker Allergies Allergy/AdvReac Type Severity Reaction Status Date / Time No Known Allergies Allergy Unverified 03/07/22 09:22 Home Medications Medication Instructions Recorded Confirmed Type aspirin 81 mg tablet,delayed 324 mg PO DAILY Chest Pain 03/07/22 03/07/22 History release Patient History Medical History No pertinent family history No pertinent past medical history Surgical History No pertinent past surgical history Social History Smoking Status: Never smoker Hx Alcohol Use: No Preferred Language: Bulgarian Communication Ability: Effective Hand Ii Thermal Cutter Required: No Beliefs That Will Affect Care: None Current Living Situation: Spouse Feels Safe at Home: Yes Safety Concerns: Feels Safe At This Time Assistive Devices: Glasses Review of Systems Review of Systems: All systems reviewed & are unremarkable except as noted in HPI & below Physical Exam Physical Exam: Constitutional: No acute distress HEENT: EOMI, PERRLA Respiratory system: Good air entry bilaterally, no wheeze, no rhonchi, no crackles CVS: S1-S2 positive, no murmurs or gallops Abdomen: Soft, nontender, nondistended, positive bowel sounds x4 Extremities: +2 pulses bilaterally radialis/ dorsalis pedis, no cyanosis, no edema Neuro: Awake alert oriented x3 Psych: Normal mood and affect G/U: No [place] Skin: no rashes, warm and dry Lymphatic: no cervical or axillary lymphadenopathy Results & Data Results & Data ([facility]) Vital Signs (Past 12 Hours) Vital Signs Temp Pulse Pulse Resp BP BP Pulse Ox 03/07/22 12:13 03/07/22 11:45 52 L 14 95 03/07/22 11:30 68 12 96 03/07/22 11:30 36.4 C L 72 16 138/79 94 03/07/22 11:15 73 14 95 03/07/22 11:10 69 18 90 03/07/22 11:47 36.4 C L 59 L 16 157/75 H 94 03/07/22 09:25 73 126/68 97 03/07/22 09:20 70 116/69 97 03/07/22 09:15 73 108/67 95 03/07/22 09:14 71 116/66 95 03/07/22 09:10 61 127/70 94 03/07/22 09:08 69 120/75 92 03/07/22 09:07 67 130/78 96 03/07/22 08:38 78 16 126/82 99 03/07/22 09:16 100 03/07/22 08:56 71 95 03/07/22 08:43 73 20 95 03/07/22 08:44 36.6 C 74 16 126/82 100 O2 Del Method 03/07/22 12:13 Room Air 03/07/22 11:45 03/07/22 11:30 03/07/22 11:30 Room Air 03/07/22 11:15 03/07/22 11:10 03/07/22 11:47 Room Air 03/07/22 09:25 Room Air 03/07/22 09:20 Room Air 03/07/22 09:15 Room Air 03/07/22 09:14 Room Air 03/07/22 09:10 Room Air 03/07/22 09:08 03/07/22 09:07 Room Air 03/07/22 08:38 Room Air 03/07/22 09:16 Room Air 03/07/22 08:56 Room Air 03/07/22 08:43 Room Air 03/07/22 08:44 Room Air Laboratory Results 03/07/22 08:40 Coding Level of Care Code 63876 Inpt Consult Level [address] elevation myocardial infarction (STEMI) I21.3 Involved coronary artery: unspecified coronary artery Coronary artery disease I25.10 Hypertension I10 (1) ST elevation myocardial infarction (STEMI) Involved coronary artery: unspecified coronary artery Qualified Code(s): I21.3 - ST elevation (STEMI) myocardial infarction of unspecified site
[2022-03-07 13:09] LABS: Estimated Average Glucose 123 mg/dl; Hemoglobin A1C 5.9 % (4.5-5.6)
[2022-03-07 13:34] LABS: Partial Thromboplastin Ratio 3.1; Prothrombin Time 11.1 Seconds (9.0-12.0)
[2022-03-07 13:45] LABS: Troponin I High Sensitivity 222.3 pg/ml (0-20)
[2022-03-07 13:55] LABS: Chol HDL Ratio 4.8 (0-5); Magnesium 2.2 mg/dl (1.7-2.4)
[2022-03-07 13:57] LABS: Partial Thromboplastin Time 86.5 Seconds (21.0-31.0)
[2022-03-07 14:04] LABS: Albumin Globulin Ratio 1.9 (0.9-2); Albumin Level 4.9 gm/dl (3.4-5.0); BUN Creatinine Ratio 16.4 (10-20); Bilirubin,Total 0.4 mg/dl (0.2-1.0); Calcium 9.7 mg/dl (8.5-10.1); Est GFR (African American) 78.5 ml/min; Est GFR (Non-African American) 67.7 ml/min; Globulin 2.6 gm/dl (2.5-4.0); Magnesium 2.2 mg/dl (1.7-2.4); Total Protein 7.5 gm/dl (6.0-8.3)
--- NOTE | 2022-03-07 14:29 | Communication Note ---
Date of Service: March 07, 2022 Patient seen and examined post cardiac procedure. Currently comfortable. Heart rate and blood pressure appropriate. Echocardiogram reviewed with preserved LV systolic function noted Plan as previously outlined for guideline directed optimal medical regimen Will follow in hospital and post discharge
[2022-03-07] MEDS: ATORVASTATIN 40 MG TAB PO SCH (15:12)
[2022-03-07] MEDS: METOPROLOL TARTRATE 25 MG TAB PO SCH (20:55)
[2022-03-07] MEDS: TICAGRELOR 90 MG TAB PO SCH (20:55)
[2022-03-07 21:12] LABS: Partial Thromboplastin Ratio 0.8; Partial Thromboplastin Time 22.9 Seconds (21.0-31.0)
--- NOTE | 2022-03-07 23:06 | Electrocardiogram Report ---
Test Reason : Blood Pressure : / mmHG Vent. Rate : 078 BPM Atrial Rate : 078 BPM P-R Int : 156 ms QRS Dur : 090 ms QT Int : 392 ms P-R-T Axes : 052 058 035 degrees QTc Int : 446 ms Normal sinus rhythm Normal ECG No previous ECGs available Confirmed by Eulalio San ([id number]) on 03/07/2022 11:06:17 PM Referred By: Confirmed By:Eulalio San
--- NOTE | 2022-03-07 23:08 | Electrocardiogram Report ---
Test Reason : Blood Pressure : / mmHG Vent. Rate : 069 BPM Atrial Rate : 069 BPM P-R Int : 158 ms QRS Dur : 094 ms QT Int : 406 ms P-R-T Axes : 043 051 034 degrees QTc Int : 435 ms Normal sinus rhythm Possible Left atrial enlargement Nonspecific ST abnormality When compared with ECG of 07-MAR-2022 08:32, No significant change was found Confirmed by Eulalio San ([id number]) on 03/07/2022 11:08:09 PM Referred By: Oli Womack Confirmed By:Eulalio San
--- NOTE | 2022-03-07 23:17 | Electrocardiogram Report ---
Test Reason : Blood Pressure : / mmHG Vent. Rate : 063 BPM Atrial Rate : 063 BPM P-R Int : 164 ms QRS Dur : 092 ms QT Int : 424 ms P-R-T Axes : 045 055 031 degrees QTc Int : 433 ms Normal sinus rhythm Normal ECG When compared with ECG of 07-MAR-2022 08:53, No significant change was found Confirmed by Eulalio San ([id number]) on 03/07/2022 11:16:34 PM Referred By: Oli Womack Confirmed By:Eulalio San
[2022-03-08 05:12] LABS: Basophils # (auto) 0.05 K/uL (0-0.2); Basophils % (auto) 0.5 %; Eosinophils # (auto) 0.22 K/uL (0-0.50); Eosinophils % (auto) 2.1 %; Hematocrit (blood only) 45.1 % (40.1-51.0); Hemoglobin 15.1 g/dl (14.0-18.0); Immature Granulocytes # (auto) 0.03 K/uL (0.00-0.02); Immature Granulocytes % (auto) 0.3 %; Lymphocytes # (auto) 2.73 K/uL (1.2-3.4); Lymphocytes % (auto) 26.1 %; Mean Corpuscular Hemoglobin 29.8 pg (25.0-34.0); Mean Corpuscular Hgb Conc 33.5 g/dL (32.0-36.0); Mean Corpuscular Volume 89.1 fL (80.0-100.0); Monocytes # (auto) 0.78 K/uL (0.24-0.82); Monocytes % (auto) 7.4 %; Neutrophils # (auto) 6.66 K/uL (1.4-6.5); Neutrophils % (auto) 63.6 %; Platelet Count 254 K/uL (130-400); RDW Coefficient of Variation 12.9 % (11.5-14.5); RDW Standard Deviation 41.8 fL (36.4-46.3); Red Blood Count 5.06 M/uL (4.63-6.08); White Blood Count 10.47 K/ul (4.8-10.8)
[2022-03-08 06:08] LABS: Calcium 9.2 mg/dl (8.5-10.1)
[2022-03-08 06:18] LABS: Troponin I High Sensitivity 3080.5 pg/ml (0-20)
[2022-03-08 06:25] LABS: BUN Creatinine Ratio 16.7 (10-20); Est GFR (African American) 85.2 ml/min; Est GFR (Non-African American) 73.5 ml/min
[2022-03-08] MEDS ORDERED: ASPIRIN 81 MG ECTAB PO SCH (09:00)
[2022-03-08] MEDS: METOPROLOL TARTRATE 25 MG TAB PO SCH (09:27)
[2022-03-08] MEDS: TICAGRELOR 90 MG TAB PO SCH (09:36)
[2022-03-08] MEDS: ATORVASTATIN 40 MG TAB PO SCH (09:36)
--- NOTE | 2022-03-08 09:41 | Critical Care Progress Note ---
Date of Service March 08, 2022 Assessment & Plan (1) ST elevation myocardial infarction (STEMI): (2) Coronary artery disease: (3) Hypertension: Plan -- STEMI S/p cardiac cath --> 2 JONATAN placed in the proximal and mid LAD Patient did have nonsustained V. tach on the way to the hospital. EKG postprocedure showed normal sinus rhythm, no ST-T wave changes appreciated Continue with dual antiplatelet therapy Continue with beta-nathalie if tolerable Continue with statin Trend troponin Cardiology following the case To the echo 03/07/2022: EF 60-65%, mild MR, right ventricle normal in size and function -- Hypertension Patient is not on any blood pressure medications at home Continue to monitor blood pressure however still on the higher side and we will start the patient on lisinopril Plan: EKG from today does not show any ST-T wave changes. Normal sinus rhythm. Patient's heart rate is on the lower side. He has been ordered beta-nathalie we will try to hold if it stays persistently low Blood pressure is also on the softer side Patient is hemodynamically stable to be downgraded to medical floor Please note the above document was generated using voice recognition software. It may contain grammatical, syntax or spelling errors.Any formal questions or concerns about the content, text or information contained within the body of this dictation should be directly addressed to the provider for clarification. Admission and Anticipated Discharge Date Admission Date: March 07, 2022 Subjective Patient seen and examined at bedside. No acute distress, no adverse events overnight. Denies any chest pain, no shortness of breath, no headache, no nausea, no vom iting Fair appetite. Review of Systems Review of Systems: All systems reviewed & are unremarkable except as noted in Subjective Physical Exam Physical Exam: Constitutional: No acute distress HEENT: EOMI, PERRLA Respiratory system: Good air entry bilaterally, no wheeze, no rhonchi, no crackles CVS: S1-S2 positive, no murmurs or gallops Abdomen: Soft, nontender, nondistended, positive bowel sounds x4 Extremities: +2 pulses bilaterally radialis/ dorsalis pedis, no cyanosis, no edema Neuro: Awake alert oriented x3 Psych: Normal mood and affect G/U: No Malone Skin: no rashes, warm and dry Lymphatic: no cervical or axillary lymphadenopathy Results & Data Results & Data ([place]) Vital Signs (Past 12 Hours) Vital Signs Temp Pulse Resp BP Pulse Ox 03/08/22 07:31 60 17 96 03/08/22 07:31 108/66 03/08/22 07:00 60 16 95 03/08/22 07:00 105/69 03/08/22 06:00 48 L 14 95 03/08/22 06:00 95/57 L 03/08/22 05:30 104/66 03/08/22 05:30 48 L 14 95 03/08/22 05:00 54 L 17 98 03/08/22 08:00 60 03/08/22 00:00 52 L 03/08/22 04:00 56 L 12 93 03/08/22 03:30 52 L 14 97 03/08/22 03:30 112/56 L 03/08/22 03:01 54 L 15 95 03/08/22 03:01 125/67 03/08/22 03:00 51 L 16 97 03/08/22 02:30 61 13 96 03/08/22 02:05 118/76 03/08/22 02:05 54 L 17 96 03/08/22 02:00 54 L 16 96 03/08/22 01:31 81 23 95 03/08/22 01:31 111/76 03/08/22 01:30 55 L 15 95 03/08/22 01:00 60 15 96 03/08/22 01:00 136/80 03/08/22 00:31 54 L 12 96 03/08/22 00:31 117/73 03/08/22 00:30 55 L 16 97 03/08/22 00:00 47 L 14 97 03/08/22 00:00 121/72 03/07/22 23:30 54 L 9 L 96 03/07/22 23:30 99/66 L 03/07/22 23:00 52 L 15 96 03/07/22 22:30 79 10 L 97 03/07/22 22:30 132/81 03/08/22 02:00 36.7 C 03/07/22 23:27 52 L 03/07/22 22:20 52 L 14 94 03/07/22 22:10 52 L 14 94 03/07/22 22:00 52 L 14 95 03/07/22 22:00 130/75 03/07/22 21:50 61 9 L 96 03/07/22 21:40 53 L 16 94 Laboratory Results 03/08/22 04:34 03/08/22 04:34 Coding Level of Care Code 91745 Subseq Hosp Care Lvl [address] elevation myocardial infarction (STEMI) I21.3 Involved coronary artery: unspecified coronary artery Coronary artery disease I25.10 Hypertension I10 (1) ST elevation myocardial infarction (STEMI) Involved coronary artery: unspecified coronary artery Qualified Code(s): I21.3 - ST elevation (STEMI) myocardial infarction of unspecified site
[2022-03-08] MEDS ORDERED: METOPROLOL SUCC 25MG EXT REL TAB PO SCH (10:00)
--- NOTE | 2022-03-08 12:10 | Cardiology Progress Note ---
Date of Service March 08, 2022 Assessment & Plan (1) ST elevation myocardial infarction (STEMI): (2) Coronary artery disease: (3) Atherogenic dyslipidemia: Plan Patient is a 51-year-old male without prior history of cardiac disease who presented with acute coronary syndrome with dynamic ST segment changes post exercise including ST elevation. Patient taken emergently to the cardiac catheterization lab with thrombotic disease in the proximal mid left anterior descending treated with drug-eluting stent. There remained residual distal left circumflex stenosis. Echocardiogram postevent demonstrated preserved LV function and EKGs are normal. Patient currently stable Plan: Continue dual antiplatelet therapy, beta-nathalie with metoprolol succinate 25 mg/day, atorvastatin 80 mg/day. Nitroglycerin sublingual sublingual prescription Cardiology follow-up next. If blood pressure allows may consider low- dose REANNA inhibitor but overall LV systolic function preserved. Cardiac rehab referral as outpatient Patient report any symptoms with gradual slow increase in activities as No work 1 week Anticipate stress testing 4 weeks unless symptoms dictate otherwise Admission and Anticipated Discharge Date Admission Date: March 07, 2022 Subjective Patient was seen and examined, chart, medications, telemetry reviewed. Patient feels well chest discomfort no longer present. Ambulatory in room without difficulty. No arrhythmias. Tolerating current medications. No bleeding issues right wrist site healing well Review of Systems Review of Systems: All systems reviewed & are unremarkable except as noted in Subjective Physical Exam Constitutional: WD/WN, vitals as above Eyes: PERRL, conjunctivae normal, anicteric sclerae ENMT: external ear and nose normal, oropharynx normal Neck: trachea midline, no thyromegaly Respiratory: normal respiratory effort, lungs clear to auscultation Cardiovascular: Rate/Rhythm: regular rate and regular rhythm Heart Sounds: normal S1 and normal S2; no gallop and no murmur Palpation: normal PMI Vessels: normal carotid upstroke and radial pulses present; no JVD and no carotid bruit Extremities: no edema Gastrointestinal (Abdomen): normal bowel sounds, soft, nontender, no hepatosplenomegaly Musculoskeletal: no cyanosis or clubbing, extremities motor strength 5/5 Skin: no rashes, warm and dry Neurologic: PERRL, EOMI, accommodation nl, no face palsy, no dysarthria Psychiatric: A+Ox3, euthymic affect Results & Data ([facility]) Vital Signs (Past 12 Hours) Vital Signs Temp Pulse Resp BP Pulse Ox O2 Del Method 03/08/22 09:50 62 17 99 03/08/22 09:40 60 26 H 94 03/08/22 09:31 72 24 98 03/08/22 09:31 112/60 03/08/22 09:30 59 L 16 96 03/08/22 09:20 56 L 15 96 03/08/22 09:10 62 12 95 03/08/22 09:00 64 8 L 95 03/08/22 08:50 62 16 95 03/08/22 08:40 63 25 H 95 03/08/22 08:30 69 12 97 03/08/22 08:30 132/74 03/08/22 08:20 55 L 16 94 03/08/22 08:10 60 17 95 03/08/22 08:00 60 15 95 03/08/22 07:50 63 15 93 03/08/22 07:40 58 L 15 96 Room Air 03/08/22 07:31 60 17 96 03/08/22 07:31 108/66 03/08/22 07:00 60 16 95 03/08/22 07:00 105/69 03/08/22 06:00 48 L 14 95 03/08/22 06:00 95/57 L 03/08/22 05:30 104/66 03/08/22 05:30 48 L 14 95 03/08/22 05:00 54 L 17 98 03/08/22 08:00 60 03/08/22 04:00 56 L 12 93 03/08/22 03:30 52 L 14 97 03/08/22 03:30 112/56 L 03/08/22 03:01 54 L 15 95 03/08/22 03:01 125/67 03/08/22 03:00 51 L 16 97 03/08/22 02:30 61 13 96 03/08/22 02:05 118/76 03/08/22 02:05 54 L 17 96 03/08/22 02:00 54 L 16 96 03/08/22 01:31 81 23 95 03/08/22 01:31 111/76 03/08/22 01:30 55 L 15 95 03/08/22 01:00 60 15 96 03/08/22 01:00 136/80 03/08/22 00:31 54 L 12 96 03/08/22 00:31 117/73 03/08/22 00:30 55 L 16 97 03/08/22 02:00 36.7 C Laboratory Results Laboratory Results - last 24 hr 03/07/22 03/07/22 03/07/22 11:20 12:55 12:55 WBC RBC Hgb Hct MCV MCH MCHC RDW Std Deviation RDW Coeff of Germaine Plt Count MPV Immature Gran % (Auto) Neut % (Auto) Lymph % (Auto) Pitt % (Auto) Eos % (Auto) Baso % (Auto) Neut # (Auto) Lymph # (Auto) Pitt # (Auto) Eos # (Auto) Baso # (Auto) Immature Gran # (Auto) PT INR APTT PTT Ratio Sodium 138 Potassium 4.0 Chloride 102 Carbon Dioxide 28 Anion Gap 8 BUN 20 Creatinine 1.22 Est Cr Clr Drug Dosing 80.0 Est GFR ( Amer) 78.5 Est GFR (Non-Af Amer) 67.7 BUN/Creatinine Ratio 16.4 Glucose 98 POC Glucose Estimat Average Glucose Hemoglobin A1c Calcium 9.7 Magnesium 2.2 Total Bilirubin 0.4 AST 19 ALT 17 Alkaline Phosphatase 54 Total Creatine Kinase 207 Troponin I High Sens 222.3 H* D 222.0 H* Total Protein 7.5 Albumin 4.9 Globulin 2.6 Albumin/Globulin Ratio 1.9 Triglycerides Cholesterol LDL Cholesterol Direct 177 LDL Cholesterol, Calc VLDL Cholesterol, Calc HDL Cholesterol Cholesterol/HDL Ratio Nasal Screen MRSA (PCR) Negative 03/07/22 03/07/22 03/07/22 12:55 12:55 12:55 WBC RBC Hgb Hct MCV MCH MCHC RDW Std Deviation RDW Coeff of Germaine Plt Count MPV Immature Gran % (Auto) Neut % (Auto) Lymph % (Auto) Pitt % (Auto) Eos % (Auto) Baso % (Auto) Neut # (Auto) Lymph # (Auto) Pitt # (Auto) Eos # (Auto) Baso # (Auto) Immature Gran # (Auto) PT 11.1 INR 1.0 APTT 86.5 H* PTT Ratio 3.1 Sodium Potassium Chloride Carbon Dioxide Anion Gap BUN Creatinine Est Cr Clr Drug Dosing Est GFR ( Amer) Est GFR (Non-Af Amer) BUN/Creatinine Ratio Glucose POC Glucose Estimat Average Glucose 123 Hemoglobin A1c 5.9 H Calcium Magnesium 2.2 Total Bilirubin AST ALT Alkaline Phosphatase Total Creatine Kinase Troponin I High Sens Total Protein Albumin Globulin Albumin/Globulin Ratio Triglycerides 64 Cholesterol 225 H LDL Cholesterol Direct LDL Cholesterol, Calc 165 VLDL Cholesterol, Calc 13 HDL Cholesterol 47 Cholesterol/HDL Ratio 4.8 Nasal Screen MRSA (PCR) 03/07/22 03/07/22 03/07/22 17:28 20:48 20:48 WBC RBC Hgb Hct MCV MCH MCHC RDW Std Deviation RDW Coeff of Germaine Plt Count MPV Immature Gran % (Auto) Neut % (Auto) Lymph % (Auto) Pitt % (Auto) Eos % (Auto) Baso % (Auto) Neut # (Auto) Lymph # (Auto) Pitt # (Auto) Eos # (Auto) Baso # (Auto) Immature Gran # (Auto) PT INR APTT 22.9 PTT Ratio 0.8 Sodium Potassium Chloride Carbon Dioxide Anion Gap BUN Creatinine Est Cr Clr Drug Dosing Est GFR ( Amer) Est GFR (Non-Af Amer) BUN/Creatinine Ratio Glucose POC Glucose 116 H Estimat Average Glucose Hemoglobin A1c Calcium Magnesium Total Bilirubin AST ALT Alkaline Phosphatase Total Creatine Kinase Troponin I High Sens 2724.7 H* D Total Protein Albumin Globulin Albumin/Globulin Ratio Triglycerides Cholesterol LDL Cholesterol Direct LDL Cholesterol, Calc VLDL Cholesterol, Calc HDL Cholesterol Cholesterol/HDL Ratio Nasal Screen MRSA (PCR) 03/08/22 03/08/22 03/08/22 04:34 04:34 08:05 WBC 10.47 RBC 5.06 Hgb 15.1 Hct 45.1 MCV 89.1 MCH 29.8 MCHC 33.5 RDW Std Deviation 41.8 RDW Coeff of Germaine 12.9 Plt Count 254 MPV 10.0 Immature Gran % (Auto) 0.3 Neut % (Auto) 63.6 Lymph % (Auto) 26.1 Pitt % (Auto) 7.4 Eos % (Auto) 2.1 Baso % (Auto) 0.5 Neut # (Auto) 6.66 H Lymph # (Auto) 2.73 Pitt # (Auto) 0.78 Eos # (Auto) 0.22 Baso # (Auto) 0.05 Immature Gran # (Auto) 0.03 H PT INR APTT PTT Ratio Sodium 137 Potassium 4.0 Chloride 104 Carbon Dioxide 26 Anion Gap 7 BUN 19 Creatinine 1.14 Est Cr Clr Drug Dosing 84.0 Est GFR ( Amer) 85.2 Est GFR (Non-Af Amer) 73.5 BUN/Creatinine Ratio 16.7 Glucose 100 H POC Glucose Estimat Average Glucose Hemoglobin A1c Calcium 9.2 Magnesium Total Bilirubin AST ALT Alkaline Phosphatase Total Creatine Kinase Troponin I High Sens 3080.5 H* 2927.9 H* Total Protein Albumin Globulin Albumin/Globulin Ratio Triglycerides Cholesterol LDL Cholesterol Direct LDL Cholesterol, Calc VLDL Cholesterol, Calc HDL Cholesterol Cholesterol/HDL Ratio Nasal Screen MRSA (PCR) ECG Additional Comments: EKG 03/08/2022 normal tracing (1) ST elevation myocardial infarction (STEMI) Involved coronary artery: unspecified coronary artery Qualified Code(s): I21.3 - ST elevation (STEMI) myocardial infarction of unspecified site
--- NOTE | 2022-03-08 13:26 | Discharge Summary ---
Discharge Summary Date of Service March 08, 2022 Notes For Next Care Provider -STEMI follow-up after hospitalizations -please evaluate after multiple medication changes -please evaluate right radial cath insertion site for issues. -please ensure no new symptoms evolving Medication Changes From Visit NEW MEDICATIONS: Aspirin 81 mg p.o. daily Atorvastatin 80 mg p.o. daily Brilinta 90 mg p.o. twice daily Metoprolol succinate 25 mg ER p.o. daily Admission HPI Per Admitting Provider 51-year-old male with no significant past medical history presented to the hospital for chest pain. Pt said that this morning after finishing exercise on his [employer] bike and developed substernal chest discomfort. Described as sharp and pressure-like chest discomfort radiating to his back with shortness of breath.He said that the pain increased in intensity and he took aspirin. He said his called EMS. He said that while en route to the ER chest pain worsening. Initial EKG done by EMS demonstrated nonsustained ventricular tachycardia and ST elevations.He was given aspirin and Brillinta 180mg upon arriving in the ER. Heart alert was called and pt was taken to the ER for emergent cardiac cath where 2 drug-eluting stents were placed in overlapping the LAD and mid LAD. 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 Currently pt said that chest pain improves, but he said that he had a mild intermittent achy chest discomfort. Denies any chest pain, palpitation, dizziness and SOB. Admission Exam Per Admitting Provider Physical Exam: General- No acute distress Head- atraumatic Eyes- PERRL, EOMI, ENT- oropharynx clear Neck- supple, no JVD Lungs- clear to auscultation Heart- regular rhythm; no murmur Abdomen- normal bowel sounds, soft, nontender Extremities- no calf tenderness, no hematoma noted in right wrist area Neuro- alert, oriented x 3; PERRL, EOMI; no facial palsy; no dysarthria Skin- warm & dry Principal Dx & Hospital Course #1 = Principal Diagnosis (1) ST elevation myocardial infarction (STEMI): 51-year-old male with no significant past medical history presented to [facility] for chest pain. Initial EKG done by EMS demonstrated nonsustained ventricular tachycardia and ST elevations. Heart alert called and he underwent emergent cardiac catheterization with successful PCI 2 drug-eluting stents were placed in overlapping the LAD and mid LAD. Brillinta, aspirin, metoprolol and atorvastatin was started ECHO showed Normal LV wall motion abnormality with EF 60-65 % He was monitored overnight in the ICU and had no post-procedure complications. At time of discharge he was mentating and ambulating at baseline and was tolerating PO. He was hemodynamically stable and was discharged from the ICU in stable condition with close PCP and cardiology followup within the week. His wrist site looked good prior to discharge and he was given post catheterization instructions. Updated Medication List Medication Instructions Recorded Confirmed Type aspirin 81 mg tablet,delayed 81 mg PO QAM #90 tabs 03/08/22 03/12/22 Rx release atorvastatin 80 mg tablet 80 mg PO DAILY #30 tabs 03/08/22 03/12/22 Rx metoprolol succinate 25 mg 25 mg PO QAM #30 tabs 03/08/22 03/12/22 Rx tablet,extended release 24 hr ticagrelor 90 mg tablet (Brilinta) 90 mg PO BID #60 tabs 03/08/22 03/12/22 Rx Hospital Stay Data Consultations 03/07/22 11:04 Consult Internal Medicine Routine 03/07/22 11:10 Consult Cardiac Rehabilitation Routine 03/07/22 11:11 Consult Hospitalist Routine 03/07/22 12:15 Consult Cardiology Routine 03/07/22 12:31 Consult Fur Operator Routine Procedures Performed Operation Date: 03/07/22 09:30 Actual Procedures s Cineradiography w/Routine Exam - Flaco Harper MD, PhD p Aspiration/PCI w/JONATAN for Stemi - Flaco Harper MD, PhD s Cath, Left with Cors and Vent - Flaco Harper MD, PhD p Drug Eluting Stent SGl Vessel - Flaco Harper MD, PhD Diagnostic Imagining Performed 03/07/22 09:24 CL Cath Imgs for PACS use only Stat Pending Results Patient Have Any Pending Studies at Discharge: No Discharge Instructions Given to Patient (Per Discharging Provider) Please take all medications as instructed on discharge list below. It is recommended you stay off work for one week until cleared by your outpatient office support clerk. Someone should be contacting you for primary care and cardiology follow-up times Wednesday. It will be important to obtain refill prescriptions on the new mediat ions you are being given. Please contact me over the weekend for any issues by calling the hospital engraver set up operator and having me paged. The number is [phone]. It was a pleasure taking care of you! Please call if you have any questions or problems. You can reach a [facility] hospitalist on duty at [facility] 24 hours a day by calling [phone]. Take care of yourself. Marcia Guerra, [facility] Hospitalist Total Time Total Time Spent Total Time Spent (In Minutes): 60
--- NOTE | 2022-03-08 21:16 | Electrocardiogram Report ---
Test Reason : Blood Pressure : / mmHG Vent. Rate : 069 BPM Atrial Rate : 069 BPM P-R Int : 154 ms QRS Dur : 096 ms QT Int : 410 ms P-R-T Axes : 042 065 045 degrees QTc Int : 439 ms Normal sinus rhythm Normal ECG When compared with ECG of 07-MAR-2022 10:58, No significant change was found Confirmed by Manpreet Savage ([id number]) on 03/08/2022 9:15:36 PM Referred By: Oli Womack Confirmed By:Manpreet Savage
[2022-03-09] MEDS ORDERED: ATORVASTATIN 40 MG TAB PO SCH (09:00)
== END 2022-03-08 14:03 | disposition home or self-care (01) | DRG 247 ==
LOC: ED 08:38 → CC 09:32 → SUATTDRO 12:15 → INTOOBSV 12:15 → 1E 12:15
DX: Y93.A1 Activity, exercise machines primarily for cardiorespiratory conditioning; I21.02 ST elevation (STEMI) myocardial infarction involving left anterior descending coronary artery; I47.2 Ventricular tachycardia; Z79.82 Long term (current) use of aspirin; Y92.019 Unspecified place in single-family (private) house as the place of occurrence of the external cause; I10 Essential (primary) hypertension; E78.5 Hyperlipidemia, unspecified; I25.119 Atherosclerotic heart disease of native coronary artery with unspecified angina pectoris